=== PATIENT | female | born 1950 | race Caucasian/White ===

== ENCOUNTER 2020-04-20 21:10 | Emergency (ER) | payer OTHER ==
[~2020-04-20] VITALS: Ht 167.6 cm; Wt 59.1 kg
[2020-04-20 21:28] VITALS: Ht 167.6 cm; Wt 59.1 kg
[2020-04-20] MEDS ORDERED: SYNTHROID50 MCG PO (21:30)
[2020-04-20] MEDS ORDERED: NORFLEX100 MG PO (23:45)
[2020-04-20] MEDS ORDERED: ULTRAM50 MG PO (23:45)
[2020-04-20] MEDS ORDERED: MOBIC7.5 MG PO (23:45)
[2020-04-20] MEDS ORDERED: OMEPRAZOLE20 M1 PO (23:45)
[2020-04-21 00:30] VITALS: BP 112/58
== END 2020-04-21 00:42 | disposition home or self-care (01) ==
LOC: D.ER 21:10
DX: S39.011A Strain of muscle, fascia and tendon of abdomen, initial encounter (principal); W19.XXXA Unspecified fall, initial encounter; Y93.9 Activity, unspecified; Y92.9 Unspecified place or not applicable; E03.9 Hypothyroidism, unspecified